=== PATIENT | male | born 1990 | race African-American/Black ===

== ENCOUNTER → 2020-09-07 14:29 | Outpatient (CLI) | payer OTHER, SELFPAY ==
[2020-09-07 15:44] LABS: COVID19 -Nasal RAPID Negative (Negative)
== END ==
PROVIDERS: Visit Provider Family Medicine Sleep Medicine
DX: Z01.812 Encounter for preprocedural laboratory examination (principal); Z20.828 Contact with and (suspected) exposure to other viral communicable diseases
CPT/HCPCS: 87635; C9803